=== PATIENT | male | born 1955 | race Two or more races ===

== ENCOUNTER 2020-01-14 19:09 | Inpatient (IN) | payer OTHER ==
[~2020-01-14] VITALS: Ht 162.6 cm; Wt 70.0 kg
[2020-01-14] MEDS ORDERED: methylPREDNISolone SOD SUCC 125 MG/2 ML VL IV ONE (20:00)
[2020-01-14] MEDS ORDERED: ZINC SULFATE 220mg CAP or TAB PO ONE (20:00)
[2020-01-14] MEDS ORDERED: AZITHROMYCIN 500MG/ 250ML 250 ML IV ONE (20:00)
[2020-01-14] MEDS ORDERED: ENOXAPARIN SOD 100 MG/1 ML SYRINGE SC ONE (20:00)
[2020-01-14] MEDS ORDERED: ASCORBIC ACID 500 MG TAB PO ONE (20:00)
[2020-01-14] MEDS ORDERED: PANTOPRAZOLE 40 MG/10 ML VIAL INJ IV ONE (20:00)
[2020-01-14 21:00] LABS: Basophils # (auto) 0 10 ^3/uL (0-0.2); Basophils % (auto) 0.3 % (0.0-2.0); Eosinophils # (auto) 0 10 ^3/uL (0-0.8); Eosinophils % (auto) 0.2 % (0.0-7.0); Hematocrit 40.7 % (41.0-53.0); Hemoglobin 14.1 g/dL (13.5-17.5); Lymphocytes # (auto) 0.4 10 ^3/uL (0.4-5.4); Lymphocytes % (auto) 7.4 % (10.0-50.0); Mean Corpuscular Hemoglobin 33.3 pg (28.0-32.0); Mean Corpuscular Hgb Conc. 34.6 g/dL (32.0-36.0); Monocytes # (auto) 0.4 10 ^3/uL (0-1.3); Monocytes % (auto) 6.7 % (0.0-12.0); Neutrophils % (auto) 85.4 % (37.0-80.0); Nucleated Red Blood Cells % 0.2 %; Platelet Count (auto) 231 10^3/uL (140-450); Red Blood Cells 4.24 10^6/uL (4.5-5.90); Red Cell Distribution Width 13.2 % (11.8-14.3); White Blood Cell 5.9 10^3/uL (4.4-10.8)
[2020-01-14] MEDS ORDERED: MORPHINE SULF INJ 2 MG/ML SYRINGE 1ML IV PRN (21:15)
[2020-01-14] MEDS ORDERED: NITROGLYCERIN 0.4 MG SL TAB SL PRN (21:15)
[2020-01-14 21:23] LABS: Albumin 2.9 g/dL (3.4-5.0); Calcium 8.3 mg/dL (8.5-10.1); Potassium 4.3 mmol/L (3.5-5.1)
[2020-01-14 21:27] LABS: Lactic Acid w/Reflex 2.2 mmol/L (0.4-2.0)
[2020-01-14 21:31] LABS: BUN/Creatinine Ratio 18.9; Bilirubin, Total 0.5 mg/dL (0.2-1.0); CRP High Sensitivity 13.3 mg/dL (< 0.3); Total Protein 6.8 g/dL (6.4-8.2)
[2020-01-14] MEDS: InsuLIN REG 1unit/0.01ml Soln (100units/ml) SC SCH (22:00)
[2020-01-14] MEDS ORDERED: SODIUM CHLORIDE 0.9% 1,000 ML IV SCH (22:00)
[2020-01-14] MEDS ORDERED: ACETAMINOPHEN 325 MG TAB PO PRN (22:00)
[2020-01-14] MEDS: ALBUTEROL SULF HFA 90MCG INH 200DOSE IN SCH (22:00)
[2020-01-14] MEDS ORDERED: DEXTROSE (50%) 50ML SYRG IV PRN (22:00)
[2020-01-14] MEDS ORDERED: ONDANSETRON HCL 4 MG/2 ML VIAL IV PRN (22:00)
[2020-01-14] MEDS ORDERED: TEMAZEPAM 15 MG CAP PO PRN (22:00)
[2020-01-15] VITALS (7 sets, daily range): BP systolic 102–130; BP diastolic 62–68
--- NOTE | 2020-01-15 00:12 | NUR ---
Telemetry admit from ER MAULIK ALLAN admitted to Telemetry unit after SBAR received. Patient oriented to [facility], RN primary RN, unit, room, bed, and unit policies regarding patient care and visiting hours. Patient now on continuous telemetry monitoring, tele box #[id number] and telemetry reading on arrival to unit is 75. Patient placed on bedside oxygen 2L via nasal cannula, weighed by bedscale and encouraged to call if they need something. Explained plan of care to patient, patient verbalized understanding. Will continue to monitor.
[2020-01-15] MEDS: DOXYCYCLINE 100MG/250ML 250 ML IV SCH ×3 (00:48→22:26)
[2020-01-15] MEDS: FAMOTIDINE 20 MG TAB PO SCH ×3 (00:51→22:26)
[2020-01-15] MEDS: ACCU-CHEK COMFORT CURVE STRIP VI SCH ×5 (00:54→22:27)
--- NOTE | 2020-01-15 00:55 | NUR ---
Patient Refused Insulin Patient's blood glucose 169. Per eMAR, patient is to receive insulin. Patient refused. Explained blood glucose level and insulin to patient, patient verbalized understanding, continues to refuse. Will continue to monitor.
[2020-01-15] MEDS ORDERED: IBU600T PO (02:46)
[2020-01-15] MEDS ORDERED: IBUP800T24 PO (02:46)
[2020-01-15] MEDS: InsuLIN REG 1unit/0.01ml Soln (100units/ml) SC SCH ×4 (07:03→22:39)
--- NOTE | 2020-01-15 07:50 | NUR ---
OPENING NOTE ASSUMED CARE OF PT. PT ALERT AND ORIENTED. NO SOB/DISTRESS NOTED. BED SET TO LOWEST POSITION/LOCKED, BEDSIDE RAILS UP X2, CALL LIGHT WITHIN REACH, INSTRUCTED PATIENT TO CALL FOR ASSISTANCE. UPDATE ON POC. PATIENT VERBALIZED UNDERSTANDING. WILL CONTINUE TO MONITOR Q 1HR AND PRN.
[2020-01-15 09:00] LABS: Basophils # (auto) 0 10 ^3/uL (0-0.2); Basophils % (auto) 0.1 % (0.0-2.0); Eosinophils # (auto) 0 10 ^3/uL (0-0.8); Hematocrit 44.2 % (41.0-53.0); Lymphocytes # (auto) 0.3 10 ^3/uL (0.4-5.4); Lymphocytes % (auto) 7.8 % (10.0-50.0); Mean Corpuscular Hemoglobin 32.6 pg (28.0-32.0); Mean Corpuscular Hgb Conc. 33.8 g/dL (32.0-36.0); Mean Corpuscular Volume 96.4 fL (80.0-100.0); Monocytes # (auto) 0.2 10 ^3/uL (0-1.3); Monocytes % (auto) 4.4 % (0.0-12.0); Neutrophils # (auto) 3.9 10 ^3/uL (1.6-8.6); Neutrophils % (auto) 87.7 % (37.0-80.0); Nucleated Red Blood Cells % 0.1 %; Platelet Count (auto) 261 10^3/uL (140-450); Red Blood Cells 4.59 10^6/uL (4.5-5.90); Red Cell Distribution Width 13.2 % (11.8-14.3); White Blood Cell 4.5 10^3/uL (4.4-10.8)
[2020-01-15 09:19] LABS: Potassium 4.2 mmol/L (3.5-5.1)
[2020-01-15 09:32] LABS: Albumin 2.8 g/dL (3.4-5.0); BUN/Creatinine Ratio 20.7; Bilirubin, Total 0.4 mg/dL (0.2-1.0); Calcium 8.4 mg/dL (8.5-10.1); Total Protein 7.2 g/dL (6.4-8.2)
[2020-01-15] MEDS ORDERED: ENOXAPARIN SOD 40 MG/0.4 ML SYRINGE SC SCH (10:00)
[2020-01-15] MEDS: ZINC SULFATE 220mg CAP or TAB PO SCH (11:00)
[2020-01-15] MEDS: CHOLECALCIFEROL (VITD3) 1,000UNIT=25mCg TAB PO SCH (11:01)
[2020-01-15] MEDS: ASCORBIC ACID 1,000 MG TAB PO SCH (11:01)
[2020-01-15] MEDS: ALBUTEROL SULF HFA 90MCG INH 200DOSE IN SCH ×2 (11:42→16:25)
--- NOTE | 2020-01-15 19:30 | NUR ---
OPENING SHIFT NOTE Assumed care of patient who is A&O x4. Currently on 3L NC with no s/s of distress. Spo2 is 95% Dry cough noted. Denies pain at this time. PIV in right forearm is intact. Patient reports pain with flushing. Patient is ambulatory at baseline, however instructed to call for assistance with ambulating due to increased SOB and dizziness with exertion. Bed is in low locked position with side rails up x2. Call light is within reach and patient encouraged to call for assistance when needed. Will continue to monitor for changes PRN.
--- NOTE | 2020-01-15 20:55 | NUR ---
patient reports increased SOB with ambulation. Provided Bedside commode. Addendum: 01/16/20 at 0138 by GERARDO VASQUEZ RN RN disregard. Incorrect patient
--- NOTE | 2020-01-15 21:10 | NUR ---
IV Patient complaining of pain to IV site with flushing. IV insertion IV access obtained, via clean sterile technique by inserting 20 gauge catheter at left forearm after 1 attempt. IV secured properly. No trauma to site. Patient tolerated well. IV removal IV to right forearm DC'd with clean sterile technique, catheter fully intact. Pressure dressing applied to site. Patient tolerated well.
[2020-01-15] MEDS: ENOXAPARIN SOD 80 MG/0.8ML SYRINGE SC SCH (22:26)
[2020-01-16] MEDS: ALBUTEROL SULF HFA 90MCG INH 200DOSE IN SCH ×4 (00:23→23:26)
[2020-01-16 05:00] VITALS: BP 112/67
[2020-01-16] MEDS: ACCU-CHEK COMFORT CURVE STRIP VI SCH ×4 (06:33→21:51)
[2020-01-16] MEDS: InsuLIN REG 1unit/0.01ml Soln (100units/ml) SC SCH ×4 (06:34→21:51)
[2020-01-16 06:58] LABS: Basophils # (auto) 0 10 ^3/uL (0-0.2); Basophils % (auto) 0.1 % (0.0-2.0); Eosinophils # (auto) 0 10 ^3/uL (0-0.8); Hematocrit 42.6 % (41.0-53.0); Hemoglobin 14.6 g/dL (13.5-17.5); Lymphocytes # (auto) 0.5 10 ^3/uL (0.4-5.4); Lymphocytes % (auto) 5.7 % (10.0-50.0); Mean Corpuscular Hemoglobin 32.9 pg (28.0-32.0); Mean Corpuscular Hgb Conc. 34.3 g/dL (32.0-36.0); Monocytes % (auto) 11.2 % (0.0-12.0); Neutrophils # (auto) 7.1 10 ^3/uL (1.6-8.6); Nucleated Red Blood Cells % 0.1 %; Platelet Count (auto) 347 10^3/uL (140-450); Red Blood Cells 4.44 10^6/uL (4.5-5.90); Red Cell Distribution Width 13.2 % (11.8-14.3); White Blood Cell 8.5 10^3/uL (4.4-10.8)
[2020-01-16 07:28] LABS: Potassium 4.4 mmol/L (3.5-5.1)
[2020-01-16 07:31] LABS: Albumin 2.7 g/dL (3.4-5.0); BUN/Creatinine Ratio 24.4; Calcium 8.4 mg/dL (8.5-10.1)
[2020-01-16 07:34] LABS: Bilirubin, Total 0.4 mg/dL (0.2-1.0)
--- NOTE | 2020-01-16 07:52 | NUR ---
OPENING SHIFT NOTE Assumed care of patient. PT is awake and alert. No S/S of distress or pain. Instructed on POC and to call for assist PRN. Fall precautions in place per safety protocol. Will continue to monitor for changes Q1hr and PRN.
[2020-01-16 08:17] VITALS: BP 110/68
[2020-01-16] MEDS: ENOXAPARIN SOD 80 MG/0.8ML SYRINGE SC SCH ×2 (10:00→21:51)
[2020-01-16] MEDS: ASCORBIC ACID 1,000 MG TAB PO SCH (10:29)
[2020-01-16] MEDS: DOXYCYCLINE 100MG/250ML 250 ML IV SCH ×2 (10:29→21:51)
[2020-01-16] MEDS: ZINC SULFATE 220mg CAP or TAB PO SCH (10:30)
[2020-01-16] MEDS: FAMOTIDINE 20 MG TAB PO SCH ×2 (10:30→21:51)
[2020-01-16] MEDS: CHOLECALCIFEROL (VITD3) 1,000UNIT=25mCg TAB PO SCH (10:31)
[2020-01-16 12:40] VITALS: BP 118/68
[2020-01-16 16:29] VITALS: BP 120/74
--- NOTE | 2020-01-16 16:44 | NUR ---
SPOKE WITH [facility]. CONFIRMED THAT PT WILL PAY DEDUCTIBLE WITH CARD AT TIME OF DC.
[2020-01-16 22:00] VITALS: BP 132/75
[2020-01-17 05:00] VITALS: BP 132/74
[2020-01-17] MEDS: ACCU-CHEK COMFORT CURVE STRIP VI SCH ×2 (06:36→11:30)
[2020-01-17] MEDS: InsuLIN REG 1unit/0.01ml Soln (100units/ml) SC SCH ×2 (06:48→11:30)
[2020-01-17 07:19] LABS: Basophils # (auto) 0 10 ^3/uL (0-0.2); Basophils % (auto) 0.1 % (0.0-2.0); Eosinophils # (auto) 0 10 ^3/uL (0-0.8); Eosinophils % (auto) 0.1 % (0.0-7.0); Hemoglobin 14.6 g/dL (13.5-17.5); Lymphocytes # (auto) 0.7 10 ^3/uL (0.4-5.4); Lymphocytes % (auto) 10.1 % (10.0-50.0); Mean Corpuscular Hemoglobin 33.3 pg (28.0-32.0); Mean Corpuscular Hgb Conc. 34.8 g/dL (32.0-36.0); Mean Corpuscular Volume 95.6 fL (80.0-100.0); Monocytes # (auto) 0.9 10 ^3/uL (0-1.3); Monocytes % (auto) 13.3 % (0.0-12.0); Neutrophils # (auto) 5.4 10 ^3/uL (1.6-8.6); Neutrophils % (auto) 76.4 % (37.0-80.0); Nucleated Red Blood Cells % 0.1 %; Platelet Count (auto) 395 10^3/uL (140-450); Red Blood Cells 4.39 10^6/uL (4.5-5.90); Red Cell Distribution Width 13.1 % (11.8-14.3)
--- NOTE | 2020-01-17 07:30 | NUR ---
Opening Shift Note Assumed care of patient, awake and alert. No S/S of distress/SOB or pain, currently on 2L via NC. Instructed on POC and to call for assist PRN, call light within reach, will continue to monitor for changes Q1hr and PRN.
[2020-01-17 07:33] LABS: Potassium 4.6 mmol/L (3.5-5.1)
[2020-01-17 07:38] LABS: BUN/Creatinine Ratio 22.4; Calcium 8.5 mg/dL (8.5-10.1)
[2020-01-17 08:00] VITALS: BP 121/68
[2020-01-17 08:49] VITALS: BP 121/68
[2020-01-17] MEDS: ASCORBIC ACID 1,000 MG TAB PO SCH (09:20)
[2020-01-17] MEDS: DOXYCYCLINE 100MG/250ML 250 ML IV SCH (09:20)
[2020-01-17] MEDS: FAMOTIDINE 20 MG TAB PO SCH (09:21)
[2020-01-17] MEDS: CHOLECALCIFEROL (VITD3) 1,000UNIT=25mCg TAB PO SCH (09:21)
[2020-01-17] MEDS: ZINC SULFATE 220mg CAP or TAB PO SCH (09:21)
[2020-01-17] MEDS: ALBUTEROL SULF HFA 90MCG INH 200DOSE IN SCH ×2 (09:45→15:40)
[2020-01-17] MEDS: ENOXAPARIN SOD 80 MG/0.8ML SYRINGE SC SCH (10:00)
--- NOTE | 2020-01-17 12:40 | NUR ---
ACTIVITY PT AMBULATED TO BATHROOM, STATES " I CAN TAKE OFF MY OXYGEN FOR A LITTLE WHILE", NO DISTRESS NOTED, NO C/O SOB, PT AMBULATED BACK TO BED AND OXYGEN REAPPLIED, CONT CARE
[2020-01-17 12:51] VITALS: BP 123/68
--- NOTE | 2020-01-17 14:09 | NUR ---
MESSAGED, OXYGEN NOT DELIVERED DR SEPULVEDA RESPONDED AND STATES HE WILL CALL HIS [facility] ADMINISTRATOR, [facility]
--- NOTE | 2020-01-17 16:26 | NUR ---
DISCHARGE Discharge instructions given as ordered. Encourage to follow up with PMD as instructed. Per pt PMD, @ Dr Gonzalez, currently not giving appointment to positive Covid patients and patient will have to make an appointment once asymptomatic, All questions and concerns addressed. Patient verbalized understanding. Medication reconciliation form completed and copy given to patient. IV removed with catheter intact, pressure dressing applied. Telemetry unit returned to ICU. Patient taken to vehicle via wheelchair with all personal belongings, accompanied by staff, EVS, security, on proper isolation, oxygen was delivered and discharged @ 2L via NC. No distress noted at time of departure.
== END 2020-01-17 16:30 | disposition home health service (06) | DRG 177 ==
LOC: EDBD 19:09 → ER 19:09 → TELE 19:10 → TELE-EAST 01-15 00:06
PROVIDERS: ADMIT Nurse Practitioner; ATTEND Hospitalist
DX: U07.1 COVID-19 (principal); J12.89 Other viral pneumonia; J96.01 Acute respiratory failure with hypoxia; J98.11 Atelectasis; E11.9 Type 2 diabetes mellitus without complications; E78.5 Hyperlipidemia, unspecified; I10 Essential (primary) hypertension; Z83.3 Family history of diabetes mellitus
CPT/HCPCS: 36415; 71045; 80048; 80053; 82728; 82962; 83605; 83615; 83735; 85025; 85379; 86141; 87040; 94640; 96365; 96372; 96375; C9113; G0378; J1815; J3490